=== PATIENT | male | born 1945 | race Two or more races ===

== ENCOUNTER 2020-10-15 11:02 | Emergency (ER) | payer MEDICARE ==
[~2020-10-15] VITALS: Ht 170.2 cm; Wt 74.8 kg
[2020-10-15 11:10] VITALS: BP 131/89
[2020-10-15] MEDS: IBUPROFEN 600 MG TABLET PO ONE (11:28)
--- NOTE | 2020-10-15 12:06 | NUR ---
The patient bibs for "Stepped into a pothole yesterday Right ankle pain". Rates pain 8/10. Denies numbness/tingling in the extremity. Will continue to monitor the patient.
--- NOTE | 2020-10-15 12:45 | NUR ---
Andreas wrap and crutches/gait training by [facility]
--- NOTE | 2020-10-15 12:48 | NUR ---
Patient discharged to home in stable condition. Written and verbal after care instructions given. Patient verbalizes understanding of instruction.
== END 2020-10-15 12:48 | disposition home or self-care (01) ==
LOC: ER 11:08
DX: S93.491A Sprain of other ligament of right ankle, initial encounter (principal); X50.1XXA Overexertion from prolonged static or awkward postures, initial encounter; Y93.01 Activity, walking, marching and hiking; Y92.89 Other specified places as the place of occurrence of the external cause; Y99.8 Other external cause status
CPT/HCPCS: 73610-TC

== ENCOUNTER 2022-09-30 10:54 | Emergency (ER) | payer MEDICARE ==
[~2022-09-30] VITALS: Ht 167.6 cm; Wt 81.6 kg
[2022-09-30 11:09] VITALS: BP 141/82; TEMP 96.4
--- NOTE | 2022-09-30 11:10 | NUR ---
C/O LEFT ANKLE PAIN S/P MECHANICAL FALL YESTERDA
--- NOTE | 2022-09-30 11:44 | NUR ---
XRAY AT BEDSIDE
--- NOTE | 2022-09-30 12:53 | NUR ---
SABRINA STIRRUP IMMOBILIZER APPLIED ON AFFECTED ANKLE.
--- NOTE | 2022-09-30 12:54 | NUR ---
Patient discharged to home in stable condition. Written and verbal after care instructions given. Patient verbalizes understanding of instruction.
== END 2022-09-30 12:56 | disposition home or self-care (01) ==
LOC: ER 11:03
DX: S93.492A Sprain of other ligament of left ankle, initial encounter (principal); K21.9 Gastro-esophageal reflux disease without esophagitis; X50.1XXA Overexertion from prolonged static or awkward postures, initial encounter; Y93.89 Activity, other specified; Y92.89 Other specified places as the place of occurrence of the external cause; Y99.8 Other external cause status
CPT/HCPCS: 73610-TC

== ENCOUNTER 2024-01-17 10:24 | Emergency (ER) | payer MEDICARE ==
[~2024-01-17] VITALS: Ht 167.6 cm; Wt 72.6 kg
[2024-01-17 10:36] VITALS: BP 139/78; TEMP 98.3; O2SAT 99
== END 2024-01-17 12:15 | disposition home or self-care (01) ==
LOC: ER 10:28
DX: S63.91XA Sprain of unspecified part of right wrist and hand, initial encounter (principal); S60.410A Abrasion of right index finger, initial encounter; S60.412A Abrasion of right middle finger, initial encounter; S60.414A Abrasion of right ring finger, initial encounter; K21.9 Gastro-esophageal reflux disease without esophagitis; M19.90 Unspecified osteoarthritis, unspecified site; W01.0XXA Fall on same level from slipping, tripping and stumbling without subsequent striking against object, initial encounter; Y93.89 Activity, other specified; Y92.89 Other specified places as the place of occurrence of the external cause; Y99.8 Other external cause status
CPT/HCPCS: 99283; 73130; A6403 ×2

== ENCOUNTER 2025-02-12 09:04 | Emergency (ER) | payer MEDICARE ==
[~2025-02-12] VITALS: Ht 167.6 cm; Wt 72.6 kg
[2025-02-12 09:15] VITALS: TEMP 98.2
[2025-02-12] MEDS ORDERED: IBUP-1490 PO (10:39)
[2025-02-12 10:58] VITALS: BP 128/77; O2SAT 98
== END 2025-02-12 10:59 | disposition home or self-care (01) ==
LOC: ER 09:15
DX: S46.911A Strain of unspecified muscle, fascia and tendon at shoulder and upper arm level, right arm, initial encounter (principal); S80.02XA Contusion of left knee, initial encounter; M19.90 Unspecified osteoarthritis, unspecified site; W19.XXXA Unspecified fall, initial encounter; Y93.01 Activity, walking, marching and hiking; Y92.89 Other specified places as the place of occurrence of the external cause; Y99.8 Other external cause status
CPT/HCPCS: 73030-TC